=== PATIENT | female | born 1970 | race Two or more races ===

== ENCOUNTER 2018-01-21 05:55 | Day surgery (SDC) | payer OTHER ==
[~2018-01-21 05:55] MED LIST: COZAAR100 MG PO
== END 2018-01-21 11:20 | disposition home or self-care (01) ==
LOC: CIR.AMB 05:55
DX: N84.0 Polyp of corpus uteri (principal); Q51.2 Other doubling of uterus

== ENCOUNTER 2018-02-11 11:06 | Outpatient (CLI) | payer OTHER | END 2018-02-11 11:15 | disposition home or self-care (01) | LOC: SONOGRAMA 11:06 | DX: N60.11 Diffuse cystic mastopathy of right breast (principal); N60.12 Diffuse cystic mastopathy of left breast; N63.22 Unspecified lump in the left breast, upper inner quadrant ==

== ENCOUNTER 2020-02-23 05:20 | Day surgery (SDC) | payer OTHER ==
[~2020-02-23 05:20] MED LIST changes: +METFORMIN HCL500 M3 PO; +SIMVASTATIN5 MG PO; +TOPROL XL25 M1 PO
== END 2020-02-23 17:50 | disposition home or self-care (01) ==
LOC: CIR.AMB 05:20
PROVIDERS: ATTEND Obstetrics & Gynecology
DX: N84.0 Polyp of corpus uteri (principal); Z20.828 Contact with and (suspected) exposure to other viral communicable diseases